=== PATIENT | female | born 1965 | race Two or more races ===

== ENCOUNTER 2018-06-18 03:38 | Emergency (ER) | payer SELFPAY ==
[~2018-06-18] VITALS: Ht 170.2 cm; Wt 77.1 kg
[2018-06-18] MEDS ORDERED: cloNIDine HCL 0.1 MG TAB PO ONE (04:15)
[2018-06-18 05:13] VITALS: BP 124/74
== END 2018-06-18 05:38 | disposition home or self-care (01) ==
LOC: ER 03:38 → EDBD 03:38 → ER 05:38
DX: S80.02XA Contusion of left knee, initial encounter (principal); S20.212A Contusion of left front wall of thorax, initial encounter; S50.811A Abrasion of right forearm, initial encounter; M62.838 Other muscle spasm; V43.62XA Car passenger injured in collision with other type car in traffic accident, initial encounter; Y93.89 Activity, other specified; Y99.8 Other external cause status; Y92.410 Unspecified street and highway as the place of occurrence of the external cause
CPT/HCPCS: 71045; 72040; 73090; 73560